=== PATIENT | female | born 1985 | race Caucasian/White ===

== ENCOUNTER 2025-06-23 16:10 | Emergency (ER) | payer OTHER ==
[~2025-06-23] VITALS: Ht 157.5 cm; Wt 65.8 kg
[~2025-06-23 16:10] MED LIST: CIPR500 PO; CYCL10 PO; DICL50ER PO; ERYT.5TO OU; HYDACE5 PO; IBUP600 PO; NAPR500 PO; RXCYCL10 PO; SULF10OPO OP; SULTRIDS PO; SULTRISS PO
== END 2025-06-23 18:44 | disposition home or self-care (01) ==
LOC: ER 16:10
DX: M25.561 Pain in right knee (principal); M25.461 Effusion, right knee; Z91.81 History of falling; Z88.0 Allergy status to penicillin; Z79.1 Long term (current) use of non-steroidal anti-inflammatories (NSAID); Z79.2 Long term (current) use of antibiotics
CPT/HCPCS: 73562-RT; 99283-25; A9270

== ENCOUNTER 2025-07-03 08:24 | Emergency (ER) | payer OTHER ==
[~2025-07-03] VITALS: Ht 157.5 cm; Wt 68.0 kg
[2025-07-03 09:46] LABS: Source, Urine Clean Catch
[2025-07-03 09:58] LABS: Bilirubin, Urine Neg (Neg); Color, Urine Yellow (P-Yellow); Glucose Qualitative, Urine Neg (Neg); Ketones, Urine Neg (Neg); Leukocyte Esterase, Urine 3+ (Neg); Protein, Urine 3+ (Neg); Specific Gravity, Urine 1.015 (1.003-1.022); Urobilinogen, Urine NORM (Normal)
[2025-07-03 10:11] LABS: Red Blood Cells, Urine 50-100 /hpf (0-2); White Blood Cells, Urine 25-50 /hpf (0-5)
[2025-07-03] MEDS ORDERED: Nitrofurantoin/Nitrofuran Mac 100 MG Cap PO ONE (10:25)
[2025-07-03] MEDS ORDERED: NITR100CA PO (10:37)
== END 2025-07-03 10:53 | disposition home or self-care (01) ==
LOC: ER 08:24
PROVIDERS: Student in an Organized Health Care Education/Training Program
DX: N39.0 Urinary tract infection, site not specified (principal); Z88.0 Allergy status to penicillin; Z79.2 Long term (current) use of antibiotics; Z79.899 Other long term (current) drug therapy
CPT/HCPCS: 81001; 81025; 87077; 87086; 87186; 99283; A9270